=== PATIENT | male | born 1980 | race Caucasian/White ===

== ENCOUNTER 2018-09-26 12:51 | Emergency (ER) | payer OTHER ==
--- NOTE | 2018-09-26 13:47 | ED.PDOC ---
History of Present Illness - General Chief Complaint: Respiratory Problem Stated Complaint: Chest/nasal congestion w/productive cough Time Seen by Provider: 09/26/18 13:43 Source: patient Exam Limitations: no limitations - History of Present Illness Comments: Arslan Gorman 38 y/o male came to ER with cough and congestion for the last one week worse in the morning also had cough today felt pop on his lower rib cage.Denies history of asthma. Timing/Duration: week - one Cough Quality/Degree: moderate, productive cough Possible Cause: occasional episodes Improving Factors: nothing Worsening Factors: nothing Associated Symptoms: nasal drainage Respiratory Risk Factors: no cause identified Allergies/Adverse Reactions: Allergies Hydromorphone [From Dilaudid] Adverse Reaction (Severe, Verified 09/26/18 13:28) Persimmons Allergy (Uncoded 09/26/18 13:28) Home Medications: Ambulatory Orders Amlodipine Besylate 5 mg PO DAILY 10/01/13 Benzonatate Perles [Tessalon Perles] 200 mg PO BID #40 cap 09/26/18 Cefuroxime Axetil [Ceftin] 500 mg PO Q12H 7 Days #14 tablet 09/26/18 Lisinopril 40 mg PO QPM 09/26/18 Sertraline HCl [Zoloft] 25 mg PO DAILY 09/26/18 Tamsulosin [Flomax] 0.4 mg PO QD 09/26/18 Tramadol HCl 50 mg PO Q6HR PRN #14 tab 09/26/18 Review of Systems - Review of Systems Constitutional: States: no symptoms reported EENTM: States: see HPI Respiratory: States: see HPI Cardiology: States: no symptoms reported Gastrointestinal/Abdominal: States: no symptoms reported Genitourinary: States: no symptoms reported Musculoskeletal: States: no symptoms reported All other Systems: Reviewed and Negative, No Change from Baseline Past Medical History (General) - Patient Medical History Hx Seizures: No Hx Stroke: No Hx Dementia: No Hx Asthma: No Hx of COPD: No Hx Cardiac Disorders: No Hx Congestive Heart Failure: No Hx Pacemaker: No Hx Hypertension: Yes Hx Thyroid Disease: No Hx Diabetes: No Hx Gastroesophageal Reflux: No Hx Renal Disease: No Hx Cancer: No Hx of HIV: No Hx Hepatitis C: No Hx MRSA: Yes - Wound to right forearm MRSA Source:: Wound Surgical History: no surgical history - Vaccination History Hx Tetanus, Diphtheria Vaccination: Yes Hx Influenza Vaccination: No Hx Pneumococcal Vaccination: No - Social History Hx Tobacco Use: No Hx Chewing Tobacco Use: Yes Hx Alcohol Use: No Hx Substance Use: No Hx Substance Use Treatment: No Hx Depression: No Hx Physical Abuse: No Hx Emotional Abuse: No - Female History Patient is a Female of Child Bearing Age (10 -59 yrs old): No Patient : No Family Medical History - Family History Mother Family History: No Known Living Status: Hx Family Cancer: Yes Father Hx Family Hypertension: Yes Hx Family;Other: COPD Physical Exam - Physical Exam General Appearance: Alert, Comfortable, No apparent distress Eye Exam: bilateral normal ENT Exam: normal ENT inspection, hearing grossly normal, nasal congestion, nasal drainage Neck: non-tender, full range of motion, supple Respiratory: chest non-tender, lungs clear, normal breath sounds, no respiratory distress, other - tenderness right lower rib cage Cardiovascular/Chest: normal peripheral pulses, regular rate, rhythm, no murmur Gastrointestinal/Abdominal: normal bowel sounds, non tender, soft, no organomegaly Neurologic: alert, oriented x 3 Skin Exam: normal color, warm/dry Progress - Progress Progress: 09/26/18 13:49 Vital Signs - 24 hr 09/26/18 09/26/18 12:57 13:19 Temperature 98.1 F Pulse Rate [L 73 73 finger] Respiratory 18 18 Rate Blood Pressure 154/80 [L arm] O2 Sat by Pulse 97 Oximetry 09/26/18 14:44 Discuss x -ray result with patient - EKG/XRAY/CT XRAY: chest - and ribs no acute findings Departure - Departure Clinical Impression: Upper respiratory infection Qualifiers: URI type: unspecified URI Qualified Code(s): J06.9 - Acute upper respiratory infection, unspecified Time of Disposition: 14:45 Disposition: Discharge to Home or Self Care Condition: Fair Departure Forms: ED Discharge - Pt. Copy, Patient Portal Self Enrollment Instructions: Cough, Runny Nose, and the Common Cold, How to Do a Nasal Rinse Referrals: Get Louie MD [Primary Care Provider] - 1-2 Weeks Prescriptions: Tramadol HCl 50 mg PO Q6HR PRN #14 tab PRN Reason: Pain Benzonatate Perles [Tessalon Perles] 200 mg PO BID #40 cap Cefuroxime Axetil [Ceftin] 500 mg PO Q12H 7 Days #14 tablet Home Medications: Ambulatory Orders Amlodipine Besylate 5 mg PO DAILY 10/01/13 Benzonatate Perles [Tessalon Perles] 200 mg PO BID #40 cap 09/26/18 Cefuroxime Axetil [Ceftin] 500 mg PO Q12H 7 Days #14 tablet 09/26/18 Lisinopril 40 mg PO QPM 09/26/18 Sertraline HCl [Zoloft] 25 mg PO DAILY 09/26/18 Tamsulosin [Flomax] 0.4 mg PO QD 09/26/18 Tramadol HCl 50 mg PO Q6HR PRN #14 tab 09/26/18 Additional Instructions: Continue with all home medications;May use the following over the counter medications: Nasal Saline rinse 3-4 sprays each nostril for nasal congestion until better;Afrin nose spray 2 sprays each nose Am/Pm for nasal congestion 3 days on 3 days off until better;Zyrtec 10mg one tablet pm until better;Aspercreme with Lidocaine apply to affected area 3 x a day until better;Aleve 1-2 tablets am/pm for pain;Cough /Cold medicine as directed; follow up with primary Md 03 Oct 2018 for recheck
--- NOTE | 2018-09-26 14:33 | RAD ---
EXAM DESCRIPTION: Chest,1 View CLINICAL HISTORY: cough COMPARISON: March 08, 2016 FINDINGS: The cardiomediastinal silhouette is unremarkable. There is no airspace consolidation or pleural effusion. The bronchovascular markings are within normal limits, and the lungs are not hyperinflated. There is no pneumothorax or acute fracture. IMPRESSION: Negative exam. Electronically signed by: Estiven Graham MD 09/26/2018 2:31 PM CDT
--- NOTE | 2018-09-26 14:36 | RAD ---
EXAM DESCRIPTION: Ribs,Right 3 Views CLINICAL HISTORY: cough COMPARISON: None available FINDINGS: Three views of the right-sided ribs show no right-sided rib fracture. No right chest wall abnormality. Mild degenerative changes in the thoracic spine at several levels. IMPRESSION: No fracture or other right-sided rib abnormality. Electronically signed by: Estiven Graham MD 09/26/2018 2:34 PM CDT
[2018-09-26 15:11] VITALS: BP 149/74; TEMP 97.7; O2SAT 97
== END 2018-09-26 15:06 | disposition home or self-care (01) ==
LOC: ER 12:51
DX: J06.9 Acute upper respiratory infection, unspecified (principal); I10 Essential (primary) hypertension; Z87.891 Personal history of nicotine dependence; Z79.899 Other long term (current) drug therapy; Z88.5 Allergy status to narcotic agent; Z88.8 Allergy status to other drugs, medicaments and biological substances

== ENCOUNTER 2018-12-23 01:21 | Emergency (ER) | payer SELFPAY ==
[2018-12-23] MEDS ORDERED: HYDROCOD/APAP 10/325 (ER DISP) # 3 tablets PO ONE (01:28)
--- NOTE | 2018-12-23 01:31 | ED.PDOC ---
History of Present Illness - General Time Seen by Provider: 12/23/18 01:28 Source: patient, RN notes reviewed Additional Information: 38 YEAR OLD FELL AND HYPEREXTENDED HIS RIGHT THUMB AND NOW HAS PAIN 2 HOURS AGO HE HAS NO OTHER INJURY HE STATES HE FELT A SNAP AT THE BASE OF HIS THUMB PHYSICAL IN DISTRESS RIGHT HAND NO SWELLING NO DISCOLORATION THERE IS TENDERNESS OVER THE RIGHT THUMB IP JOINT - History of Present Illness Occurred: just prior to arrival Pain - Upper Extremity: mild: Elbow, right, moderate: Hand, right Method of Injury: fell Allergies/Adverse Reactions: Allergies Hydromorphone [From Dilaudid] Adverse Reaction (Severe, Verified 09/26/18 13:28) Persimmons Allergy (Uncoded 09/26/18 13:28) Home Medications: Ambulatory Orders Amlodipine Besylate 5 mg PO DAILY 10/01/13 Benzonatate Perles [Tessalon Perles] 200 mg PO BID #40 cap 09/26/18 Cefuroxime Axetil [Ceftin] 500 mg PO Q12H 7 Days #14 tablet 09/26/18 Lisinopril 40 mg PO QPM 09/26/18 Sertraline HCl [Zoloft] 25 mg PO DAILY 09/26/18 Tamsulosin [Flomax] 0.4 mg PO QD 09/26/18 Tramadol HCl 50 mg PO Q6HR PRN #14 tab 09/26/18 Acetamin W/Cod #3 Tab [Tylenol w/CODEINE #3] 1 ea PO Q6HR PRN #40 tab 12/23/18 Review of Systems - Review of Systems Constitutional: States: no symptoms reported EENTM: States: no symptoms reported Respiratory: States: no symptoms reported Cardiology: States: no symptoms reported Gastrointestinal/Abdominal: States: no symptoms reported Genitourinary: States: no symptoms reported Musculoskeletal: States: no symptoms reported, see HPI Skin: States: no symptoms reported Endocrine: States: no symptoms reported Past Medical History (General) - Patient Medical History Hx Seizures: No Hx Stroke: No Hx Dementia: No Hx Asthma: No Hx of COPD: No Hx Cardiac Disorders: No Hx Congestive Heart Failure: No Hx Pacemaker: No Hx Hypertension: Yes Hx Thyroid Disease: No Hx Diabetes: No Hx Gastroesophageal Reflux: No Hx Renal Disease: No Hx Cancer: No Hx of HIV: No Hx Hepatitis C: No Hx MRSA: Yes - Wound to right forearm MRSA Source:: Wound - Vaccination History Hx Tetanus, Diphtheria Vaccination: Yes Hx Influenza Vaccination: No Hx Pneumococcal Vaccination: No - Social History Hx Tobacco Use: No Hx Chewing Tobacco Use: Yes Hx Alcohol Use: No Hx Substance Use: No Hx Substance Use Treatment: No Hx Depression: No Hx Physical Abuse: No Hx Emotional Abuse: No - Female History Patient : No Family Medical History - Family History Mother Family History: No Known Living Status: Hx Family Cancer: Yes Father Hx Family Hypertension: Yes Hx Family;Other: COPD Physical Exam - Physical Exam General Appearance: Alert, Comfortable Eyes, Ears, Nose, Throat Exam: PERRL/EOMI, normal ENT inspection, TMs normal Neck: non-tender, full range of motion, supple Cardiovascular/Respiratory: regular rate, rhythm, no M/R/G, normal peripheral pulses, no JVD Abdominal Exam: non-tender Back Exam: normal inspection, no CVA tenderness, no vertebral tenderness Shoulder Exam: normal inspection, non-tender Elbow/Forearm Exam: normal inspection, non-tender Wrist Exam: normal inspection, non-tender Hand Exam: normal inspection, non-tender, limited ROM Neuro/Tendon: normal sensation, normal motor functions, normal tendon functions Mental Status: alert, oriented x 3 Skin Exam: normal color, warm/dry Departure - Departure Clinical Impression: Sprain of right thumb Time of Disposition: 03:05 Disposition: Discharge to Home or Self Care Condition: Good Diet: resume usual diet Referrals: Rosalio Alcala MD [Primary Care Provider] - 1-2 Weeks Prescriptions: Acetamin W/Cod #3 Tab [Tylenol w/CODEINE #3] 1 ea PO Q6HR PRN #40 tab PRN Reason: Mild To Moderate Pain Home Medications: Ambulatory Orders Amlodipine Besylate 5 mg PO DAILY 10/01/13 Benzonatate Perles [Tessalon Perles] 200 mg PO BID #40 cap 09/26/18 Cefuroxime Axetil [Ceftin] 500 mg PO Q12H 7 Days #14 tablet 09/26/18 Lisinopril 40 mg PO QPM 09/26/18 Sertraline HCl [Zoloft] 25 mg PO DAILY 09/26/18 Tamsulosin [Flomax] 0.4 mg PO QD 09/26/18 Tramadol HCl 50 mg PO Q6HR PRN #14 tab 09/26/18 Acetamin W/Cod #3 Tab [Tylenol w/CODEINE #3] 1 ea PO Q6HR PRN #40 tab 12/23/18
[2018-12-23] MEDS ORDERED: KETOROLAC TROMETHAMINE INJ 60 MG/2 ML VIAL IM ONE ×2 (01:51→01:52)
--- NOTE | 2018-12-23 02:19 | RAD ---
EXAM DESCRIPTION: Thumb,Right CLINICAL HISTORY: 38 years Male, fall COMPARISON: None. FINDINGS: No evidence for an acute fracture. No dislocation. Surrounding soft tissues are unremarkable. IMPRESSION: No acute findings. Electronically signed by: Brodie Jacobson MD 12/23/2018 2:17 AM CDT
--- NOTE | 2018-12-23 02:52 | RAD ---
EXAM: XR Right Wrist Complete, 3 or More Views CLINICAL HISTORY: The patient is 38 years old and is Male; trauma TECHNIQUE: Frontal, lateral and oblique views of the right wrist. COMPARISON: No relevant prior studies available. FINDINGS: BONES/JOINTS: Unremarkable. No acute fracture. No dislocation. SOFT TISSUES: Unremarkable. No radiopaque foreign body. IMPRESSION: Normal right wrist radiographs. Electronically signed by: Indigo Roche MD 12/23/2018 2:50 AM CDT
[2018-12-23 05:48] VITALS: BP 182/93
[2018-12-23 06:03] VITALS: TEMP 97.6; O2SAT 96
== END 2018-12-23 03:25 | disposition home or self-care (01) ==
LOC: ER 01:21
DX: S63.601A Unspecified sprain of right thumb, initial encounter (principal); Z87.891 Personal history of nicotine dependence; I10 Essential (primary) hypertension; Z88.5 Allergy status to narcotic agent; Z88.8 Allergy status to other drugs, medicaments and biological substances; X50.9XXA Other and unspecified overexertion or strenuous movements or postures, initial encounter; Y92.814 Boat as the place of occurrence of the external cause
CPT/HCPCS: 73110; 73140; J1885